=== PATIENT | male | born 2000 | race Hispanic/Latino ===

== ENCOUNTER 2023-02-21 13:45 | Emergency (ER) | payer OTHER ==
--- NOTE | 2023-02-21 14:03 | EDPHYS ---
Physician Documentation [facility] Name: Kahlil Devine Age: 22 yrs Sex: Male : 2000 Arrival Date: 02/21/2023 Time: 13:45 Bed Treatment Private MD: ED Physician Jamaal Gutierrez HPI: 02/21 13:50 This 22 yrs old Male presents to ER via Unassigned with complaints of finger injury. rn 13:50 The patient or guardian reports injury, pain. The complaints affect the PIP of left rn ring finger. Onset: The symptoms/episode began/occurred just prior to arrival. Modifying factors: The symptoms are alleviated by nothing, the symptoms are aggravated by movement. Associated signs and symptoms: Pertinent negatives: cyanosis distally, decreased sensation distally, numbness distally, tingling distally. Severity of symptoms: At their worst the symptoms were mild, in the emergency department the symptoms are unchanged. The patient has not experienced similar symptoms in the past. Patient reports left hand, and crushed by a cell door when closing. Happened today. No active bleeding. Reports heard a pop. No other injuries. Reports can still move it just hurts. Historical: - Allergies: 14:25 No Known Allergies; hb - Immunization history:: Adult Immunizations up to date. - Family history:: not pertinent. - Social history:: Smoking status: Patient denies any tobacco usage or history of. - Hospitalizations: : No recent hospitalization is reported. ROS: 13:50 Constitutional: Negative for fever, chills, and weight loss, MS/Extremity: Positive for rn injury to left fourth finger with laceration Neuro: Negative for weakness or numbness of the hand Exam: 13:50 Constitutional: This is a well developed, well nourished patient who is awake, alert, rn and in no acute distress. MS/ Extremity: Pulses equal, no cyanosis. Neurovascular intact. 2 cm linear laceration over the left fourth finger at middle phalanx, no active bleeding. Able to fully extend. No rotational deformity. Difficult to make a fist secondary to pain. Vital Signs: 14:23 BP 132 / 82; Pulse 82; Resp 16; Temp 98; Pulse Ox 100% on R/A; Weight 54.43 kg; Height hb 5 ft. 4 in. ; Pain 10/10; 20:26 BP 128 / 67; Pulse 68; Resp 18; kl 14:23 Body Mass Index 20.60 (54.43 kg, 162.56 cm) hb 14:23 Pain Scale: Adult hb MDM: 13:48 Patient medically screened. rn 13:59 Differential diagnosis: open fracture, closed fracture, contusion. Data reviewed: vital rn signs, nurses notes, radiologic studies, and as a result, I will admit patient. Consideration of Admission/Observation Patient was admitted/placed on observation. Escalation of care including admission/observation considered. Independent interpretation of the following test(s) in the Emergency Department X-Ray: My interpretation is X-ray left hand shows a linear fracture of the middle phalanx of the fourth digit per my interpretation. Counseling: I had a detailed discussion with the patient and/or guardian regarding the historical points, exam findings, and any diagnostic results supporting the discharge/admit diagnosis, radiology results, the need for further work-up and treatment in the hospital, the need to transfer to another facility, [facility] does not immediately have the required specialist. Response to treatment: the patient's symptoms have mildly improved after treatment. 15:23 ED course: Patient accepted for transfer to [facility] by hand surgery for rn evaluation. 02/21 13:50 Order name: XRAY Hand LEFT 3 View: 4th digit injury; Complete Time: 14:53 rn 02/21 13:59 Order name: IV Start; Complete Time: 14:11 rn 02/21 13:59 Order name: NPO; Complete Time: 14:11 rn 02/21 14:13 Order name: Wound Care: irrigate wound under pressure; Complete Time: 15:23 rn Administered Medications: 14:32 Drug: HYDROcodone-acetaminophen PO 5 mg-325 mg 1 tabs PO once Route: PO; hb 14:32 Drug: ceFAZolin IVPB 2 grams IVPB once over 30 mins; (mix in 100 mL NS) Route: IVPB; hb Infused Over: 30 mins; Site: right hand; 15:23 Follow up: Response: No adverse reaction; IV Status: Completed infusion; IV Intake: cm10 100ml Disposition Summary: 02/21/23 14:02 Transfer Ordered Notes: Transfer Location: [facility] rn Reason: Higher level of care rn Condition: Stable rn Problem: new rn Symptoms: have improved rn Accepting Physician: (02/21/23 20:27) levi Diagnosis - Nondisplaced fracture of medial phalanx of left ring finger, initial encounter for rn open fracture Forms: - Medication Reconciliation Form rn - SBAR form rn Signatures: Dispatcher [employer] EDDarby Schmitt, Jamaal Cortes RN, MD MD rn Baxter, Heather, RN RN hb Martinez, Clarissa RN cm10 Corrections: (The following items were deleted from the chart) 20:27 14:02 Dr. venkata sims
[2023-02-21] MEDS ORDERED: CEFAZOLIN SODIUM 1 GM/VIAL ONE (14:37)
[2023-02-21] MEDS ORDERED: NA CHLORIDE 0.9% 100 ML ONE (14:37)
[2023-02-21] MEDS ORDERED: HYDROCODONE/APAP 5/325 MG TAB ONE (14:37)
--- NOTE | 2023-02-21 14:52 | RAD REPORT ---
EXAM DESCRIPTION: RAD -Hand Left 3 View - 02/21/2023 2:03 pm CLINICAL HISTORY: Left hand pain status post injury FINDINGS: Oblique nondisplaced fracture mid aspect of the fourth middle phalanx. No dislocation
--- NOTE | 2023-02-21 20:28 | ER ---
Nurse's Notes [facility] Name: Kahlil Devine Age: 22 yrs Sex: Male : 2000 Arrival Date: 02/21/2023 Time: 13:45 Bed Treatment Private MD: Diagnosis: Nondisplaced fracture of medial phalanx of left ring finger, initial encounter for open fracture Presentation: 02/21 14:01 Chief complaint: Left ring finger crushed in cell door this morning. hb 14:01 Coronavirus screen: At this time, the client does not indicate any symptoms associated hb with coronavirus-19. Ebola Screen: No symptoms or risks identified at this time. Initial Sepsis Screen: Does the patient meet any 2 criteria? No. Patient's initial sepsis screen is negative. Does the patient have a suspected source of infection? No. Patient's initial sepsis screen is negative. Risk Assessment: Do you want to hurt yourself or someone else? Patient reports no desire to harm self or others. Onset of symptoms was February 21, 2023. 14:01 Method Of Arrival: Law Enforcement: [place] [employer] hb 14:01 Acuity: DAVINA 3 hb Historical: - Allergies: 14:25 No Known Allergies; hb - Immunization history:: Adult Immunizations up to date. - Family history:: not pertinent. - Social history:: Smoking status: Patient denies any tobacco usage or history of. - Hospitalizations: : No recent hospitalization is reported. Screenin:26 [facility] ED Fall Risk Assessment (Adult) History of falling in the last 3 months, kl including since admission No falls in past 3 months (0 pts) Confusion or Disorientation No (0 pts) Intoxicated or Sedated No (0 pts) Impaired Gait No (0 pts) Mobility Assist Device Used No (0 pt) Altered Elimination No (0 pt) Score/Fall Risk Level 0 - 2 = Low Risk Oriented to surroundings, Maintained a safe environment. Abuse screen: Denies threats or abuse. Nutritional screening: No deficits noted. Tuberculosis screening: No symptoms or risk factors identified. Assessment: 14:05 General: Appears in no apparent distress. Behavior is calm, cooperative. Pain: Pain hb currently is 9 out of 10 on a pain scale. Neuro: Level of Consciousness is awake, alert, obeys commands, Oriented to person, place, time, situation. Cardiovascular: Patient's skin is warm and dry. Respiratory: Respiratory effort is even, unlabored, Respiratory pattern is regular, symmetrical. GI: No signs and/or symptoms were reported involving the gastrointestinal system. : No signs and/or symptoms were reported regarding the genitourinary system. EENT: No signs and/or symptoms were reported regarding the EENT system. Derm: Skin is pink, warm \T\ dry. Musculoskeletal: Reports left ring finger crush injury. 15:34 Reassessment: Patient appears in no apparent distress at this time. Patient and/or hb family updated on plan of care and expected duration. Pain level reassessed. Patient is alert, oriented x 3, equal unlabored respirations, skin warm/dry/pink. 15:48 Reassessment: Report given to Annette REY at [facility]. hb 20:21 Reassessment: Patient appears in no apparent distress at this time. Patient and/or kl family updated on plan of care and expected duration. Pain level reassessed. Patient is alert, oriented x 3, equal unlabored respirations, skin warm/dry/pink. Vital Signs: 14:23 BP 132 / 82; Pulse 82; Resp 16; Temp 98; Pulse Ox 100% on R/A; Weight 54.43 kg; Height hb 5 ft. 4 in. ; Pain 10/10; 20:26 BP 128 / 67; Pulse 68; Resp 18; kl 14:23 Body Mass Index 20.60 (54.43 kg, 162.56 cm) hb 14:23 Pain Scale: Adult hb ED Course: 13:48 Patient arrived in ED. eb 13:48 Jamaal Gutierrez MD is Attending Physician. rn 14:04 XRAY Hand LEFT 3 View: 4th digit injury In Process Unspecified. EDMS 14:06 attempted to initiate a transfer with [facility] but placed on automatic hold. eb 14:11 Inserted saline lock: 22 gauge in right hand, using aseptic technique. bc6 14:20 initiated a transfer with Nunu Rey from [facility]/ She says she is currently in eb training and the others nurses are on calls/ patient transfer information given and someone will call me back. 14:23 Arm band placed on. hb 14:24 Triage completed. hb 15:03 Eunice from [facility] called back to take patient information/ she will check eb capacity at [facility] and let us know. 15:[address] Chambers the Hand Surgeon electronics engineering manager for [facility] with Dr. Gutierrez for eb patient transfer consultation. 15:23 Irrigation of laceration on PIP of left ring finger irrigated with normal saline cm10 Patient tolerated well. 15:38 administrative approval given by Eunice Patel Rn/ patient has been accepted to [facility] room 741 bed 1/ Dr. Karel Delgadillo has accepted the patient in transfer. 17:36 CALLED TO CHECK ON ETA OF EMS FOR TRANSPORT/ PER [facility] SHOULD BE HERE AT 2030 FOR eb TRANSPORT. 20:26 No provider procedures requiring assistance completed. Patient transferred, IV remains kl in place. Administered Medications: 14:32 Drug: HYDROcodone-acetaminophen PO 5 mg-325 mg 1 tabs PO once Route: PO; hb 14:32 Drug: ceFAZolin IVPB 2 grams IVPB once over 30 mins; (mix in 100 mL NS) Route: IVPB; hb Infused Over: 30 mins; Site: right hand; 15:23 Follow up: Response: No adverse reaction; IV Status: Completed infusion; IV Intake: cm10 100ml Medication: 20:27 VIS not applicable for this client. kl Intake: 15:23 IV: 100ml; Total: 100ml. cm10 Outcome: 14:02 ER care complete, transfer ordered by . rn 20:27 Transferred by ground EMS to [facility], Transfer form kl completed. X-rays sent w/ patient. 20:27 Condition: stable 20:27 Discharge instructions given to patient, Instructed on the need for transfer, Demonstrated understanding of instructions, 20:27 Patient left the ED. Signatures: Dispatcher [employer] EDDarby Schmitt RN Jamaal Cortes MD MD rn Baxter, Heather, RN RN hb Botello, Elizabeth eb [place], Breana 6 Julieth Zarate RN RN cm10
[2023-02-21 21:23] VITALS: TEMP 98; O2SAT 100
[2023-02-21 21:24] VITALS: BP 128/67
== END 2023-02-21 20:27 | disposition short-term general hospital (02) ==
LOC: ER 13:45
DX: S62.655B Nondisplaced fracture of middle phalanx of left ring finger, initial encounter for open fracture (principal)
CPT/HCPCS: 96365; 73130; 99285; J0690